=== PATIENT | male | born 1980 | race Caucasian/White ===

== ENCOUNTER 2017-12-29 18:58 | Emergency (ER) | payer MEDICAID ==
[2017-12-29 19:04] VITALS: TEMP 97.5
[2017-12-29] MEDS ORDERED: chlordiazePOXIDE 25 MG CAP PO ONE (19:04)
[2017-12-29] MEDS ORDERED: LORazepam 2 MG/ML INJ IVP ONE (19:04)
[2017-12-29] MEDS ORDERED: NS 1,000 ML IV ONE (19:04)
[2017-12-29] MEDS ORDERED: ONDANSETRON 4 MG/2 ML VIAL IVP ONE (19:04)
[2017-12-29 20:06] VITALS: O2SAT 96
[2017-12-29 20:32] VITALS: BP 123/82; PULSE 95; RESP 16
[2017-12-29] MEDS ORDERED: CHLORDIAZEPOXIDE 25MG PREPK#6 BTL TAKEHOME ONE (20:38)
--- NOTE | 2017-12-29 20:38 | EDPHY ---
H & P Time Seen by Provider: 12/29/17 19:05 HPI/ROS: Chief complaint: Alcohol withdrawal History of present illness: This is a 37-year-old male who presents to the emergency department with EMS for evaluation of alcohol withdrawal. Patient has a history of alcohol abuse. His last drink was 12 hr ago. He is attempting to stop. He has gone through withdrawal before with associated seizures. He is starting to feel unwell reporting nausea and vomiting as well as shakiness. He denies associated signs or symptoms. EMS does report that his blood sugars was in the 40 in the given must approximately 25 g of IV glucose. Review of systems: A 10 point review of systems was obtained and other than described above was negative Smoking Status: Never smoked Physical Exam: General Appearance: Alert, nontoxic, easily conversant. Eyes: Pupils equal and round no pallor or injection. ENT, Mouth: Mucous membranes moist. Respiratory: There are no retractions, lungs are clear to auscultation. Cardiovascular: Tachycardic with regular rhythm. Gastrointestinal: Abdomen is soft and non tender, no masses, bowel sounds normal. Neurological: Alert and oriented x4. Strength and sensation intact and symmetrical. Minor tremors. Skin: Warm and dry, no rashes. Musculoskeletal: Neck is supple non tender. Extremities are symmetrical, full range of motion. Psychiatric: Patient is oriented X 3, there is no agitation. Constitutional: Initial Vital Signs Temperature (C) 36.4 C 12/29/17 19:02 Heart Rate 111 H 12/29/17 19:02 Respiratory Rate 19 12/29/17 19:02 Blood Pressure 114/63 12/29/17 19:02 O2 Sat (%) 97 12/29/17 19:02 O2 Delivery Mode Room Air Allergies/Adverse Reactions: No Known Allergies Allergy (Unverified 12/29/17 19:05) Home Medications: Medication Instructions Recorded Atorvastatin Calcium 12/29/17 MDM/Departure - MDM Medications Given: Discontinued Medications Chlordiazepoxide (Librium 25 Mg Prepack#6) 1 btl TAKEHOME EDNOW ONE Stop: 12/29/17 20:39 Last Admin: 12/29/17 20:46 Dose: 1 btl Chlordiazepoxide HCl (Librium) 25 mg PO EDNOW ONE Stop: 12/29/17 19:05 Last Admin: 12/29/17 19:14 Dose: 25 mg Sodium Chloride (Ns) 1,000 mls @ 0 mls/hr IV EDNOW ONE; Wide Open PRN Reason: Protocol Stop: 12/29/17 19:05 Last Admin: 12/29/17 19:14 Dose: 1,000 mls Lorazepam (Ativan Injection) 2 mg IVP EDNOW ONE Stop: 12/29/17 19:05 Last Admin: 12/29/17 19:14 Dose: 2 mg Ondansetron HCl (Zofran) 4 mg IVP EDNOW ONE Stop: 12/29/17 19:05 Last Admin: 12/29/17 19:13 Dose: 4 mg ED Course/Re-evaluation: Patient seen under the supervision of my primary supervising physician Dr. Mary Lou Patterson. Patient presents to the emergency department for evaluation of alcohol withdrawal. He is nontoxic. Mildly tachycardic otherwise vital signs are stable. He is IV hydrated, given IV Ativan and oral Librium. Repeat fingerstick glucose is good. He is taking oral fluid and food. He will be discharged to the [facility] with Librium. He has voiced understanding and agreement with plan. Differential Diagnosis: Included but not limited to alcohol intoxication, alcohol withdrawal, DTs, polysubstance abuse - Depart Disposition: Other Psych, Not [facility] Clinical Impression: Alcohol withdrawal Qualifiers: Complication of substance-induced condition: uncomplicated Qualified Code(s): F10.230 - Alcohol dependence with withdrawal, uncomplicated Condition: Good Instructions: Chlordiazepoxide (By mouth), Alcohol Withdrawal (ED) Additional Instructions: Follow-up with primary care doctor for recheck this week Discontinue the use of alcohol, seek treatment such as alcoholics anonymous If symptoms worsen or new symptoms develop return to the emergency room for recheck Referrals: WILL FELICIANO [Other] - As per Instructions
== END 2017-12-29 21:02 ==
DX: F10.230 Alcohol dependence with withdrawal, uncomplicated (principal); E86.9 Volume depletion, unspecified
CPT/HCPCS: 96374; J2060; J2405